=== PATIENT | female | born 1985 | race Hispanic/Latino ===

== ENCOUNTER 2023-05-09 09:00 | Outpatient (RCR) | payer OTHER, SELFPAY ==
--- NOTE | 2023-04-11 09:32 | OPREHPOC ---
Outpatient Therapy Plan of Care This is a Multidisciplinary Plan of Care that may contain components documented by all disciplines (PT, OT, and ST.) OT Problem 1 OT Problem #1 Knowledge Deficit OT Goal 1 Goal 1. Patient to be independent with all materials. 2. Patient to be independent with splint wearing schedule. Target Visit 4 OT Problem 2 OT Problem #2 Impaired Flexibility OT Goal 1 Goal 1. Patient to be able to complete self-passive shoulder flexion to 130*. 2. Patient to be able to wear right resting hand splint x6 hours/all night to improve finger extension flexibility. Target Visit 4 OT Problem 3 OT Problem #3 Impaired Strength OT Goal 1 Goal 1. Patient to increase right shoulder strength as demonstrated by being able to complete gross shoulder strengthening with yellow theraband or 1 lb. free weight x10 reps. 2. Patient to increase right elbow strength as demonstrated by being able to complete gross elbow strengthening with yellow theraband or 1 lb. free weight x20 reps. Target Visit 4
--- NOTE | 2023-04-11 09:32 | OTOPEVAL1 ---
Assessment and note entered by CARRINGTON Winslow/Magno, CHT Evaluation Information Assessment Status Evaluation Diagnosis Hemiplegia Onset 2002 Subjective Information Patient had a hemorrhagic stroke in 2002 and she had surgery to relieve the pressure. She had a seizure after this and not again until this past Dec. She presents today for therapy for weakness in her right UE. She has no pain. She reports she was right hand dominant and now has to use her left hand to write, brush teeth, etc. She reports she hasn't been able to actively open her hand since the stroke. She presents today with her friend, Valery, who also interprets for her as she is Kazakh-speaking. Assessment OT Clinical Summary Patient referred to outpatient OT with right sided hemiplegia after a CVA ~20 years ago. She had a seizure recently and the physician recommended another round of therapy for the UE. She presents with muscular tightness, gross weakness, and limited functional use of the right UE. Skilled OT indicated to facilitate optimal functional use of the right UE. Plan of Care Interventions Therapeutic Exercise,Manual Therapy,Neuro Re- education,Therapeutic Activities,Hot Pack/Cold Pack,Electrical Stimulation,Check Out for Orthotic /Pr OT Services Indicated Yes Treatment Frequency and 1x/week for 4 weeks Duration These treatments will address the objective and functional deficits as defined above. The patient will be advanced safely and appropriately in order for the patient to progress towards his/her prior level of function. Additional exercises will be introduced and as well as a comprehensive home exercise program upon discharge, if needed, ?to ensure carryover of functional gains achieved in the clinic. This treatment plan has been reviewed and agreement upon by the patient.
--- NOTE | 2023-05-09 09:26 | OTOPDC ---
Assessment and note entered by CARRINGTON Winslow/Magno, CHT Evaluation Information Assessment Status Discharge Diagnosis Hemiplegia Onset 2002 Subjective Information Patient has been participating in outpatient OT x4 weeks. She reports improved flexibility and movement in the right UE. A custom resting hand splint was fabricated for the patient to wear at night and she reports this helps with the flexibility of her fingers. Reported Pain Level Pain Score 0: Self Report Assessment OT Clinical Summary Patient referred to outpatient OT with right sided hemiplegia after a CVA ~20 years ago. She had a seizure recently and the physician recommended another round of therapy for the UE. She has made improvements in the active ROM and flexibility of the shoulder, elbow, and forearm. The wrist/hand continue to measure 0/5 muscle strength. Passive ROM is WFL at these joints. She has a resting hand splint to wear for the hand. No further skilled OT indicated at this time. Plan of Care OT Services Indicated No
== END 2023-05-09 12:57 | disposition home or self-care (01) ==
LOC: ANHOT 09:00
PROVIDERS: PCP Physician Assistant; Visit Provider Physician Assistant
DX: G81.90 Hemiplegia, unspecified affecting unspecified side (principal)
CPT/HCPCS: 97110; 97166; L3806

== ENCOUNTER 2023-10-01 12:58 | Emergency (ER) | payer OTHER, SELFPAY ==
--- NOTE | ~2023-10-01 | XR_ITS ---
EXAMINATION: XR chest 1V portable Exam Date/Time: 10/01/2023 14:02 VENEER GLUE JOINTER FEEDBACK HISTORY: COUGH LEFT SIDE HEADACHE Comparison: None. RESULT: Lines, tubes, and devices: None. Lungs and pleura: Moderately low volumes with significant crowding. Patchy left upper and bilateral lower lung opacities. Cardiomediastinal silhouette: Stable. Other: No acute osseous or upper abdominal finding. IMPRESSION: Low volumes with crowding. Patchy left upper and bilateral lower lung atelectasis. Infection is not e xcluded. Reviewed, dictated and finalized at location K. ER GLUE JOINTER FEEDBACK IMPRESSION: Low volumes with crowding. Patchy left upper and bilateral lower lung atelectas is. Infection is not excluded.
--- NOTE | ~2023-10-01 | CT_ITS ---
EXAMINATION: CT brain wo con DATE: 10/01/2023 13:50 INDICATION: Cerebrovascular accident. Seizure. Headache. TECHNIQUE: Computed tomography (CT) of the head was performed without intravenous contrast. The mA wa s adjusted according to patient size. Iterative reconstruction technique was employed. The dose-lengt h product was 605.33 mGy-cm. COMPARISON: None FINDINGS: There is chronic encephalomalacia in left frontoparietal region and left insula with overly ing craniotomy. There is no intracranial hemorrhage, acute infarction, or abnormal intracranial mass lesion. There is ex vacuo dilatation of body of left lateral ventricle. There is extensive mucosal th ickening in the paranasal sinuses. The orbits are normal. The mastoid air cells are normal. IMPRESSION: 1. Chronic encephalomalacia in left frontoparietal region and left insula. Reviewed, dictated and finalized at location A. HOUSE INSPECTOR
[2023-10-01 12:59] VITALS: BP 134/76; PULSE 85; RESP 18; TEMP 36.5; O2SAT 100
--- NOTE | 2023-10-01 13:29 | ED.HA ---
HPI - Headache General Chief Complaint: Headache Stated Complaint: gutierrez, cold symptoms Time Seen by Provider: 10/01/23 13:11 History of Present Illness HPI Narrative: Patient with remote history of cerebral hemorrhage with right arm deficits 20 years ago presents here with URI symptoms, she has a runny nose, cough, and left-sided ear pain, causing her to feel like she has a headache. No focal numbness or weakness that is new. Some chills without fever. Related Data Allergies Allergy/AdvReac Type Severity Reaction Status Date / Time No Known Allergies Allergy Verified 10/01/23 13:09 Review of Systems Review of Systems: CONST: No fever. HEENT: Congestion, earache C/V: No chest pain RESP: Cough GI: No abdominal pain : No dysuria. M/S: No joint pain. SKIN: No rash. NEURO: Headache PSYCH: [No depression] Exam Narrative: EXAMINATION OF ORGAN SYSTEMS/BODY AREAS: Constitutional: Vital signs per nursing GENERAL:[No acute distress, non-toxic appearing.] HEAD: Normal with no signs of head trauma. EYES: EOMI, conjunctiva normal, PERRL ENT: Right TM bulging LUNGS: Nonlabored breathing. HEART: [Regular rate and rhythm] ABD: [Soft], [nontender to palpation] EXT: Normal range of motion SKIN: [No rashes or lesions.] NEURO: [Alert and oriented x 3.] No facial droop, ambulating with normal steady gait, clear speech. He PSYCH: Normal affect Course Vital Signs Vital signs: Vital Signs Temperature 97.7 F 10/01/23 12:59 Pulse Rate 85 10/01/23 12:59 Respiratory Rate 18 10/01/23 12:59 Blood Pressure 134/76 10/01/23 12:59 Pulse Oximetry 100 10/01/23 12:59 Oxygen Delivery Room Air 10/01/23 12:59 Temperature 97.7 F 10/01/23 12:59 Pulse Rate 85 10/01/23 12:59 Respiratory Rate 18 10/01/23 12:59 Blood Pressure 134/76 10/01/23 12:59 Pulse Oximetry 100 10/01/23 12:59 Oxygen Delivery Room Air 10/01/23 12:59 MDM - Headache MDM Narrative Medical decision making narrative: Patient presenting with URI symptoms and mild headache and left ear pain, she is very well-appearing on exam here, no new focal neurologic deficit from baseline and she does not feel different from baseline. I will get CT head given her prior history and treat her headache. COVID swabs neg, CXR no focal consolidation on my interpretation, CT head no acute abnormality. On re-eval she is feeling better other than difficulty hearing from R ear, continues to be well-appearing with clear lungs and no labored respirations. I do feel she is stable for dc home w/ expectant mgmt and f/u to her PCP and ENT as needed. Pt and family agreeable to plan. Lab Data Labs: Lab Results 10/01/23 Range/Units 13:15 Influenza A (RT-PCR) Negative (Negative) Influenza B (RT-PCR) Negative (Negative) RSV (RT-PCR) Negative (Negative) SARS-CoV-2 RNA (RT-PCR) Negative (Negative) Discharge Plan Discharge Clinical Impression: Headache, Acute left otitis media, URI (upper respiratory infection) Patient Disposition: Home, Self-Care Condition: Stable Instructions: Antibiotic Form, Ear Infection (ED), Acute Headache (ED), Cold Symptoms (ED) Additional Instructions: Please follow up with your doctor; come back if you feel worse. Patient Language: Congolese Prescriptions: New fluticasone propionate [Allergy Relief (fluticasone)] 50 mcg/actuation spray,suspension 1 spray intranasal DAILY Qty: 16 0RF Rx Instructions: administer into each nostril acetaminophen [Tylenol Extra Strength] 500 mg tablet 1,000 mg PO Q6H PRN (Reason: pain) Qty: 50 0RF ibuprofen 600 mg tablet 600 mg PO TID PRN (Reason: fever or pain) Qty: 30 0RF amoxicillin-pot clavulanate 875-125 mg tablet 1 tablet PO Q12H Qty: 14 0RF Follow-up/Referrals: Oksana,LORETA Alberto [Primary Care Provider] - 2 Days Jose Cortes MD [Physician] - 2 Days
[2023-10-01] MEDS: ACETAMINOPHEN 500 MG TABLET 1000 MG PO (13:39)
[2023-10-01] MEDS: METOCLOPRAMIDE HCL INJ 10 MG/2 ML VIAL IM (13:39)
[2023-10-01 14:14] LABS: Influenza A QL RT-PCR Negative (Negative); Influenza B QL RT-PCR Negative (Negative); RSV RNA, RT-PCR Negative (Negative); SARS-CoV-2 RNA PCR Negative (Negative)
== END 2023-10-01 14:28 | disposition home or self-care (01) ==
PROVIDERS: Emergency Provider Emergency Medicine; PCP Physician Assistant
DX: J06.9 Acute upper respiratory infection, unspecified (principal); H66.92 Otitis media, unspecified, left ear; R51.9 Headache, unspecified; Z20.822 Contact with and (suspected) exposure to COVID-19; I69.151 Hemiplegia and hemiparesis following nontraumatic intracerebral hemorrhage affecting right dominant side
CPT/HCPCS: 70450; 71045; 87637; 96372; 99284; A9270; J2765

== ENCOUNTER 2023-10-12 16:58 | Emergency (ER) | payer OTHER, SELFPAY ==
[2023-10-12 17:12] VITALS: BP 120/70; PULSE 82; RESP 16; TEMP 36.5; O2SAT 99
--- NOTE | 2023-10-12 17:21 | ED.URI ---
HPI - URI/Sore Throat General Chief Complaint: Upper Respiratory Infection Stated Complaint: very dry nose,cough sneezing Time Seen by Provider: 10/12/23 17:21 Source: patient Mode of arrival: ambulatory Limitations: no limitations History of Present Illness HPI Narrative: 38-year-old female presented for complaint of cough and right sided nasal dryness for over 2 weeks. Patient started abx for left ear infection and URI 10/01/23. Has since f/u with pcp and was then given cough medication which she reports is not helping the cough. Patient is also taking Flonase and Robitussin. reports improvement in left ear pain. Denies shortness of breath, wheezing, nausea, vomiting, diarrhea, fevers or chills. Related Data Home Medications Medication Instructions Recorded Confirmed levetiracetam 500 mg tablet 500 mg PO BID 10/12/23 10/12/23 norethindrone (contraceptive) 0.35 0.35 mg PO DAILY 10/12/23 10/12/23 mg tablet Allergies Allergy/AdvReac Type Severity Reaction Status Date / Time No Known Allergies Allergy Verified 10/12/23 17:03 Review of Systems Review of Systems: CONSTITUTIONAL: Denies body aches, fever, chills, or sweats. EYES: Denies visual changes, redness, or discharge. ENT: Reports nasal dryness Denies rhinorrhea, congestion, sore throat, or otalgia. CARDIOVASCULAR: Denies chest pain, palpitations, or edema. RESPIRATORY: Reports cough, deniessob, wheezing. GASTROINTESTINAL: Denies abdominal pain, nausea, vomiting, or diarrhea. GENITOURINARY: Denies dysuria or hematuria. SKIN: Denies rash, itching, or wounds. MUSCULOSKELETAL: Denies back pain, joint pain, or myalgia. NEUROLOGIC: Denies headache, numbness, tingling, or weakness. All systems reviewed & are unremarkable except as noted in HPI and below PMFSH Past Medical History Medical History (Updated 10/12/23 @ 18:44 by Beverly Montanez APRN) No pertinent past medical history Comments At time of signature, I have reviewed and agree with nursing past medical, surgical, social and family history unless otherwise noted. Please see nursing chart for further information. There is no relevant family history pertinent to the presenting complaint Exam Narrative: GENERAL: Well-appearing, in no acute distress. EYES: EOMI. No redness or drainage. Conjunctivae normal. ENT: Mucous membranes pink and moist. No rhinorrhea, mild right nare turbinate swelling, no epistaxis. TMs normal bilaterally. Throat normal. Uvula midline. NECK: Normal AROM. Supple. CHEST: No respiratory distress. Lungs clear to all sequeira. occasional mild dry cough. HEART: Regular rate and rhythm. No murmur appreciated. ABDOMEN: Soft, nontender, nondistended, normal active bowel sounds. EXTREMITIES: Normal range of motion. No edema. SKIN: Warm, dry, no rash. Capillary refill normal. Normal skin turgor. NEURO: Alert and oriented x3. Gait steady. PSYCH: Normal affect. Course Course Emergency Course: Patient is aware of diagnosis, understands and agrees to treatment plan. Anticipatory guidance given. Patient agrees to follow-up as directed and is aware of reasons to seek care at the emergency department. Portions of this record may have been created with voice recognition software Level of Care: Express Care Visit Vital Signs Vital signs: Vital Signs Temperature 97.7 F 10/12/23 17:12 Pulse Rate 82 10/12/23 17:12 Respiratory Rate 16 10/12/23 17:12 Blood Pressure 120/70 10/12/23 17:12 Pulse Oximetry 99 10/12/23 17:12 Oxygen Delivery Room Air 10/12/23 17:12 Temperature 97.7 F 10/12/23 17:12 Pulse Rate 82 10/12/23 17:12 Respiratory Rate 16 10/12/23 17:12 Blood Pressure 120/70 10/12/23 17:12 Pulse Oximetry 99 10/12/23 17:12 Oxygen Delivery Room Air 10/12/23 17:12 MDM - URI/Sore Throat MDM Narrative Medical decision making narrative: Discussed physical exam findings. Review prescriptions. Advised supporti
== END 2023-10-12 17:47 | disposition home or self-care (01) ==
PROVIDERS: Emergency Provider Nurse Practitioner Family; PCP Physician Assistant
DX: B34.9 Viral infection, unspecified (principal); G40.909 Epilepsy, unspecified, not intractable, without status epilepticus
CPT/HCPCS: 99213; G0463

== ENCOUNTER 2024-10-08 13:29 | Outpatient (CLI) | payer OTHER, SELFPAY ==
--- NOTE | ~2024-10-08 | MMUS_ITS ---
EXAMINATION: MM diagnostic marleni LT w nydia, US breast LT limited HISTORY: Left breast lump TECHNIQUE: 3-D tomosynthesis images of the left breast were performed and synthetic 2-D images were g enerated. CAD analysis was submitted and interpreted. High resolution limited left breast ultrasound was performed. COMPARISON: 07/05/2024 BREAST PARENCHYMAL COMPOSITION:Not Dense. The breasts are almost entirely fatty FINDINGS: MAMMOGRAPHIC FINDINGS: Left breast parenchymal pattern is unchanged. No suspicious mass lesion or distortion. No suspicious microcalcification. ULTRASOUND: Scanning of the 6:00-10:00 positions demonstrates no solid or cystic lesion. No sonographic abnormali ty seen in the region scanned. IMPRESSION: Stable mammographic evaluation of the left breast. No evidence for malignancy. No mammographic or sonographic correlate seen for the area of palpable concern in the left breast. BI-RADS Category 1: Negative Reviewed, dictated and finalized at [facility]. R DEALER IMPRESSION: Stable mammographic evaluation of the left breast. No evidence for malignancy. No mammographic or sonographic correlate seen for the area of palpable concern in the left breast. BI-RADS Category 1: Negative
== END 2024-10-08 13:30 | disposition home or self-care (01) ==
PROVIDERS: PCP Physician Assistant; Visit Provider Physician Assistant
DX: N63.24 Unspecified lump in the left breast, lower inner quadrant (principal)
CPT/HCPCS: 76642; 77061; 77065; G0279